=== PATIENT | male | born 2000 | race Caucasian/White ===

== ENCOUNTER 2022-10-30 12:08 | Emergency (ER) | payer OTHER ==
[2022-10-30 12:26] VITALS: BP 130/90; O2SAT 98
--- NOTE | 2022-10-30 13:43 | ED Physician Documentation ---
PD HPI HEENT - Stated complaint Stated Complaint: LT EAR DRUM PX, RINGING - Chief complaint Chief Complaint: Heent - History obtained from History obtained from: Patient - Additional information Additional information: The pt comes to the ED with CC of L ear drainage and ringing after jumping into a pool for PT today. He states his hearing feels a little decreased as well. No other injuries or complaints. He did have TM tubes as a kid. PD PAST MEDICAL HISTORY - Allergies Allergies/Adverse Reactions: Allergies Allergy/AdvReac Type Severity Reaction Status Date / Time No Known Drug Allergies Allergy Verified 10/30/22 12:15 PD ED PE NORMAL - Vitals Vital signs reviewed: Yes - General General: Alert and oriented X 3, No acute distress, Well developed/nourished - HEENT HEENT: Atraumatic, PERRL, EOMI, Moist mucous membranes, Other (L TM with contusion but no hemotympanum. No visualized TM rupture, but mild amount clear drainage noted.) - Neck Neck: Supple, no meningeal sign - Respiratory Respiratory: No respiratory distress - Derm Derm: Normal color, Warm and dry, No rash - Extremities Extremities: No deformity - Neuro Neuro: Alert and oriented X 3 - Psych Psych: Normal mood, Normal affect Results - Vitals Vitals: Oxygen O2 Source Room air PD Medical Decision Making - ED course Complexity details: considered differential, d/w patient ED course: I d/w the pt that I cannot find a rupture on visualization of the L TM, but based on sx, suspect a small tear, perhaps at the edge of the TM where it cannot be clearly visualized. We have discussed avoiding immersion for the next several weeks, and avoiding putting anything in his ear. We have discussed the usual indications for follow up and return. Departure - Departure Disposition: 01 Home, Self Care Clinical Impression: Tympanic membrane rupture, traumatic Qualifiers: Encounter type: initial encounter Laterality: left Qualified Code(s): S09.22XA - Traumatic rupture of left ear drum, initial encounter Condition: Stable Instructions: ED Rupture Eardrum Traumatic Comments: Your eardrum is largely intact, but there is some blood behind it. Given that you have had fluid leaking out, I suspect you probably have a small tear at the periphery, which is not visible on exam. In general, ruptured eardrums can take up to several weeks to heal, though with a small tear, the healing process will likely be much sooner. It is recommended that you do not immerse your head in water for the next several weeks until the eardrum is likely to be healed. Please take ibuprofen as needed. Forms: Activity restrictions Discharge Date/Time: 10/30/22 13:53
== END 2022-10-30 13:53 | disposition home or self-care (01) ==
LOC: ED 12:08
DX: S09.22XA Traumatic rupture of left ear drum, initial encounter (principal); X58.XXXA Exposure to other specified factors, initial encounter
CPT/HCPCS: 99281; 99283